=== PATIENT | male | born 2000 | race Two or more races ===

== ENCOUNTER 2020-09-06 15:44 | Emergency (ER) | payer SELFPAY ==
[~2020-09-06] VITALS: Ht 172.7 cm; Wt 96.7 kg
--- NOTE | 2020-09-06 16:04 | NUR ---
Peritonsilar abscess sent for ENT evaluation. Pt speaks full sentences, has muffled voice, swallows without difficulty. On cont pulse ox, IV started bloods drawna and sent. Waiting for ERP evaluation. AIDET provided.
--- NOTE | 2020-09-06 16:14 | NUR ---
Dylan at bedside for evaluation.
[2020-09-06] MEDS ORDERED: KETOROLAC 30 MG/1 ML ONE (16:26)
[2020-09-06] MEDS ORDERED: SODIUM CHLORIDE 0.9% 1,000ML IVBOLUS ONE (16:30)
[2020-09-06] MEDS ORDERED: KETOROLAC 30 MG/1 ML IVPush ONE (16:30)
--- NOTE | 2020-09-06 16:45 | NUR ---
IVF wide open, medicated per order. AIDET provided.
[2020-09-06] MEDS ORDERED: BENZOCAINE AEROSOL SPRAY 20%, 60ML ONE (17:14)
[2020-09-06] MEDS ORDERED: LIDOCAINE 1%-EPI 1:100K, 20ML ONE ×2 (17:14→18:39)
--- NOTE | 2020-09-06 17:20 | NUR ---
Supplies for peritonsillar abscess at bedside, suction on and ready at [facility].
[2020-09-06] MEDS ORDERED: LIDOCAINE 1%-EPI 1:100K, 20ML SQ ONE (17:30)
[2020-09-06] MEDS ORDERED: BENZOCAINE AEROSOL SPRAY 20%, 60ML TP ONE (17:30)
--- NOTE | 2020-09-06 18:25 | NUR ---
I/D by ERP, pt has suction for secretions. Waiting for further orders.
--- NOTE | 2020-09-06 18:41 | NUR ---
ENT on way, supplies requested are at bedside.
--- NOTE | 2020-09-06 18:59 | NUR ---
ENT dr vogel at bedside.
[2020-09-06 19:10] VITALS: BP 135/71
== END 2020-09-06 19:29 | disposition home or self-care (01) ==
LOC: ED 16:14
DX: J36 Peritonsillar abscess (principal)
CPT/HCPCS: 96361; 96374; 99283; J1885; J7030